=== PATIENT | female | born 1980 | race Caucasian/White ===

== ENCOUNTER 2018-10-26 01:36 | Emergency (ER) | payer MEDICAID ==
[~2018-10-26] VITALS: Ht 175.3 cm; Wt 104.5 kg
[2018-10-26] MEDS ORDERED: INSLAN SQ (01:49)
[2018-10-26] MEDS ORDERED: FURO40 PO (01:49)
[2018-10-26 01:54] LABS: GLUCOSE,POINT OF CARE > 600 MG/DL (70-110)
[2018-10-26] MEDS ORDERED: 0.9% SODIUM CHLORIDE 10 ML SYRINGE IVP PRN (02:00)
[2018-10-26] MEDS ORDERED: SODIUM CHLORIDE 0.9% 1,000 ML IV ONE (02:00)
[2018-10-26] MEDS ORDERED: ONDANSETRON HCL 4 MG/2 ML VIAL IVP ONE (02:15)
[2018-10-26] MEDS ORDERED: MORPHINE SULFATE 4 MG/ML SYRINGE IVP ONE (02:15)
[2018-10-26] MEDS ORDERED: IPRATROPIUM BROMIDE 0.5 MG/2.5 ML NEB SOLUTION NEB ONE (02:15)
[2018-10-26] MEDS ORDERED: ALBUTEROL SULFATE 2.5 MG/0.5 ML NEB SOLUTION NEB ONE (02:15)
[2018-10-26] MEDS ORDERED: INSULIN REGULAR, HUMAN 100 UNITS/ML IVP ONE (02:30)
[2018-10-26 03:04] LABS: BASOPHILS % (AUTO) 0.5 % (0.0-2.0); EOSINOPHILS % (AUTO) 0.4 % (1.0-6.0); HEMATOCRIT 44.6 % (36-46); LYMPHOCYTES # (AUTO) 1.5 K/uL (1.0-4.8); LYMPHOCYTES % (AUTO) 13.4 % (22.0-44.0); MEAN CORPUSCULAR HGB CONC 31.3 G/dL (31.0-37.0); MEAN CORPUSCULAR VOLUME 80 fL (80-100); MONOCYTES # (AUTO) 0.3 K/uL (0.1-1.0); MONOCYTES % (AUTO) 2.8 % (2.0-9.0); NEUTROPHILS % (AUTO) 82.9 % (40.0-70.0); PLATELET COUNT (AUTO) 300 K/uL (150-450); RED BLOOD CELL COUNT(AUTO) 5.58 MIL/uL (4.00-5.20); RED CELL DISTRIBUTION WIDTH 14.1 % (11.5-14.5)
[2018-10-26 03:19] LABS: ABG A-A DIFF O2 551.6 mmHg (10-20.0); ABG BASE EXCESS -6.1 mmol/L (-2.0-3.0); ABG CARBOXYHEMOGLOBIN 0.7 % (0.0-1.5); ABG METHEMOGLOBIN 0.1 % (0.0-1.5); ABG OXYGEN SATURATION 98.3 % (95.0-98.0); ABG OXYHEMOGLOBIN 97.5 % (94.0-100.0); ABG PCO2 39 mmHg (35-45); ABG PH 7.328 (7.350-7.450); ABG TOTAL HEMOGLOBIN 14.5 G/dL (12.0-18.0); PO2, ARTERIAL BG 122.6 mmHg (92.0-100.0); SITE, BLOOD GAS RT RADIAL; SOURCE, BLOOD GAS ARTERIAL; TEMPERATURE, FAHRENHEIT, BG 98.6 FAHREN (96.0-98.6)
[2018-10-26 03:20] LABS: O2 DEVICE,BLOOD GAS NON REBREATHER (ROOM AIR)
[2018-10-26 03:24] LABS: D-DIMER 1.68 mg/L FEU (0.00-0.50); INR 0.9 (0.9-1.1); PROTHROMBIN TIME 9.2 SEC (9.4-11.6)
[2018-10-26] MEDS ORDERED: MethylPREDNISolone SOD SUCC 125 MG/2 ML VIAL IVP ONE (03:30)
[2018-10-26 03:34] LABS: ALANINE AMINOTRANSFERASE 27 U/L (12-78); ALBUMIN 2.7 g/dL (3.4-5.0); ALKALINE PHOSPHATASE 733 U/L (46-116); ANION GAP 10 mmol/L (8-16); ASPARTATE AMINOTRANSFERASE 25 U/L (15-37); B-TYPE NATRIURETIC PEPTIDE 132 pg/mL (0-100); BILIRUBIN,TOTAL 0.2 mg/dL (0.1-1.0); CALCIUM, TOTAL 9.5 mg/dL (8.8-10.5); CARBON DIOXIDE 24 mmol/L (22-29); CHLORIDE 95 mmol/L (98-107); CREATINE KINASE, TOTAL ONLY 97 U/L (26-192); CREATININE 1.15 mg/dL (0.60-1.30); GLOMERULAR FILTR. RATE CALC 53 mL/min (>60); HCG,QUANTITATIVE < 1 mIU/mL (0-6); SODIUM SERUM 129 mmol/L (136-145); TOTAL PROTEIN, SERUM 7.4 g/dL (6.4-8.2); UREA NITROGEN, BLOOD 22 mg/dL (7-18)
[2018-10-26 03:43] LABS: GLUCOSE,RANDOM 652 mg/dL (70-110)
[2018-10-26 03:44] LABS: LACTIC ACID 2.5 mmol/L (0.4-2.0)
[2018-10-26] MEDS ORDERED: FUROSEMIDE 40 MG/4 ML VIAL IVP ONE (03:45)
[2018-10-26] MEDS ORDERED: NITROGLYCERIN 2% (1 GM=INCH) PACKET TP ONE (03:45)
[2018-10-26] MEDS ORDERED: ASPIRIN 325 MG TABLET PO ONE (03:45)
[2018-10-26 03:54] LABS: ACETONE,BLOOD NEGATIVE (NEGATIVE)
[2018-10-26 04:11] VITALS: BP 141/86
== END 2018-10-26 04:10 | disposition left against medical advice (07) ==
LOC: EMS 01:38
DX: I50.9 Heart failure, unspecified (principal); I21.9 Acute myocardial infarction, unspecified; E10.10 Type 1 diabetes mellitus with ketoacidosis without coma; J81.1 Chronic pulmonary edema; Z79.4 Long term (current) use of insulin
CPT/HCPCS: 36600; 71045; 80053; 82009; 82550; 82805; 82962; 83605; 83880; 84484; 84702; 85025; 85379; 85610; 85730; 93005; 96361; 96374; 96375; 99285; G0480; J1815; J2270; J2405; J7030